=== PATIENT | male | born 1985 ===

== ENCOUNTER 2021-04-24 13:37 | Inpatient (IN) | payer OTHER ==
[2021-04-24 17:13] LABS: Basophils % (Auto) 0.3 % (0.0-1.8); Eosinophils # (Auto) 0.2 K/mm3 (0.0-0.4); Eosinophils % (Auto) 3.1 % (0.0-4.3); Lymphocytes # (Auto) 1.7 K/mm3 (1.2-5.4); Mean Corpuscular HGB Conc 36 % (32-34); Mean Corpuscular Volume 87 fl (84-94); Monocytes # (Auto) 0.5 K/mm3 (0.0-0.8); Monocytes % (Auto) 9.9 % (0.0-7.3); Platelet Count 167 K/mm3 (140-440); Red Blood Count 5.39 M/mm3 (3.65-5.03); Red Cell Distribution Width 13.3 % (13.2-15.2)
[2021-04-24 17:15] LABS: Alanine Aminotransferase 235 units/L (7-56); Albumin 4.6 g/dL (3.9-5); BUN/Creatinine Ratio 20; Blood Urea Nitrogen 16 mg/dL (9-20); Calcium 9.9 mg/dL (8.4-10.2); Hemolysis Index 156
[2021-04-24] MEDS ORDERED: SODIUM CHLORIDE 0.9% 1000 ML 1,000 ML IV ONE (17:30)
--- NOTE | 2021-04-24 17:34 | Event Note ---
ED Screening Note Date of service: 04/24/21 Time: 17:30 ED Screening Note: 36-year-old male patient with history of diabetes presents to the emergency department with complaints of blurred vision, dizziness, and dry mouth for approximately 1 week. His symptoms prompted him to check his blood sugar, which he found to be elevated. Patient has not taken his diabetes medications in over 1 year. States he has been noncompliant with his glycemic control regimen due to current travel restrictions; his medications are reportedly in [place]. General: Awake, appropriately interactive, no acute distress. Neck: Supple. Full range of motion intact. Cardiovascular: Normal peripheral perfusion. Pulmonary: No respiratory distress. Patient is speaking normally without use of accessory muscles. Skin: No apparent rashes or lesions. Neurological: No facial asymmetry. Speech is clear. Follows commands. Patient is alert and oriented. Musculoskeletal: Moves all four extremities spontaneously with normal range of motion. Psych: Cooperative. Appropriate mood and affect. Labs available at the time of medical screening examination significant for hyperglycemia, anion gap metabolic acidosis, transaminitis. Urinalysis pending; high clinical suspicion for DKA. I have greeted and performed a focused rapid initial assessment of this patient. A comprehensive ED assessment and evaluation of the patient, analysis of all test results, and completion of the medical decision-making process will be conducted by additional ED providers. This initial assessment/diagnostic orders/clinical plan/treatment(s) is/are subject to change based on patients health status, clinical progression and re-assessment. Further treatment and workup at subsequent clinical provider's discretion. Patient/guardian urged not to elope from the ED as their condition may be serious if not clinically assessed and managed.
[2021-04-24 17:55] LABS: Hemoglobin 16.7 gm/dl (11.8-15.2)
[2021-04-24 17:56] LABS: Hematocrit 46.8 % (35.5-45.6)
[2021-04-24 18:47] LABS: Bilirubin,Urine NEG (Negative); Blood,Urine NEG (Negative); Color,Urine Straw (Yellow); Protein,Urine <15 mg/dL mg/dL (Negative); RBC,Urine < 1.0 /HPF (0.0-6.0); Urobilinogen,Urine < 2.0 mg/dL (<2.0)
[2021-04-24 18:55] LABS: INR 0.89 (0.87-1.13)
[2021-04-24 18:57] LABS: Partial Thromboplastin Time 30.6 Sec. (24.2-36.6)
[2021-04-25] MEDS ORDERED: DEXTROSE 50% IN WATER (25GM) 50 ML SYRINGE IV PRN ×2 (00:11→11:26)
[2021-04-25] MEDS ORDERED: SODIUM CHLORIDE 0.9% 1000 ML 1,000 ML IV ONE (00:11)
--- NOTE | 2021-04-25 00:19 | Emergency Department Report ---
ED General Adult HPI - General Chief complaint: Hyperglycemia Stated complaint: ELEVATED BLOOD GLUCOSE PUI?: No Time Seen by Provider: 04/25/21 00:05 Source: patient Mode of arrival: Ambulatory Limitations: No Limitations - History of Present Illness Initial comments: Patient is a 36-year-old male that presents emergency room with complaints of dizziness, lightheadedness, elevated blood sugar. Patient states he was seen at a outpatient clinic today and was found to have hyperglycemia, ketones in his urine. Patient states the clinic sent him here to be evaluated. Patient states he has diabetes and is not taking any medications for almost 1 year. Patient states that his urination, and thirst, dry mouth, dizziness. Patient states his dizziness is better with rest and worse with movement. Patient states that he is urinating a lot more frequent. Patient denies recent travel. Patient denies recent international travel. Patient denies exposure to the novel coronavirus. Patient denies sick contacts. Patient denies fever and chills. Patient denies cough. Patient denies diarrhea. Patient denies coming in contact with anybody with symptoms of the novel coronavirus. -: Sudden Consistency: constant Improves with: rest Worsens with: movement Associated Symptoms: malaise. denies: confusion, chest pain, cough, diaphoresis, fever/chills, headaches, loss of appetite, nausea/vomiting, rash, seizure, shortness of breath, syncope, weakness Treatments Prior to Arrival: none - Related Data Allergies Allergy/AdvReac Type Severity Reaction Status Date / Time No Known Allergies Allergy Unverified 04/24/21 15:18 ED Review of Systems ROS: Stated complaint: ELEVATED BLOOD GLUCOSE Other details as noted in HPI Constitutional: malaise. denies: chills, fever Eyes: denies: eye pain, eye discharge, vision change ENT: denies: ear pain, throat pain Respiratory: denies: cough, shortness of breath, wheezing Cardiovascular: denies: chest pain, palpitations Endocrine: see HPI, increased thirst, increased urine Gastrointestinal: denies: abdominal pain, nausea, diarrhea Genitourinary: denies: urgency, dysuria Musculoskeletal: denies: back pain, joint swelling, arthralgia Skin: denies: rash, lesions Neurological: as per HPI. denies: headache, weakness, paresthesias Psychiatric: denies: anxiety, depression Hematological/Lymphatic: denies: easy bleeding, easy bruising ED Past Medical Hx - Past Medical History Previous Medical History?: Yes Hx Diabetes: Yes - Surgical History Past Surgical History?: No - Family History Family history: no significant - Social History Smoking Status: Never Smoker Substance Use Type: None ED Physical Exam - General Limitations: No Limitations General appearance: alert, in no apparent distress - Head Head exam: Present: atraumatic, normocephalic - Eye Eye exam: Present: normal appearance - ENT ENT exam: Present: mucous membranes moist - Neck Neck exam: Present: normal inspection - Respiratory Respiratory exam: Present: normal lung sounds bilaterally. Absent: respiratory distress - Cardiovascular Cardiovascular Exam: Present: regular rate, normal rhythm. Absent: systolic murmur, diastolic murmur, rubs, gallop - GI/Abdominal GI/Abdominal exam: Present: soft, normal bowel sounds. Absent: distended, tenderness, guarding, rebound - Rectal Rectal exam: Present: deferred - Extremities Exam Extremities exam: Present: normal inspection - Back Exam Back exam: Present: normal inspection - Neurological Exam Neurological exam: Present: alert, oriented X3 - Psychiatric Psychiatric exam: Present: normal affect, normal mood - Skin Skin exam: Present: warm, dry, intact, normal color. Absent: rash ED Course Vital Signs 04/24/21 04/24/21 04/25/21 15:20 15:23 00:56 Temperature 98.3 F 98.3 F Pulse Rate 88 96 H Respiratory 20 16 17 Rate Blood Pressure 147/96 Blood Pressure 147/89 [Right] O2 Sat by Pulse 98 96 98 Oximetry - Reevaluation(s) Reevaluation #1: Patient is in DKA. Patient will be placed on a DKA protocol. 04/25/21 00:19 Reevaluation #2: I discussed all results with patient. I discussed plan of care with patient. Patient agrees with plan of care and admission. Patient to be admitted to the hospitalist service. 04/25/21 00:56 - Consultations Consultation #1: Hospitalist consulted for admission. Hospitalist to admit patient. 04/25/21 00:56 ED Medical Decision Making - Lab Data Result diagrams: 04/24/21 16:26 04/25/21 04:20 - Medical Decision Making Patient is a 36-year-old male who presents emergency room with complaints of hyperglycemia. Patient went to a local primary care today and was found to have ketonuria and hyperglycemia and dizziness. Patient is sent here for evaluation. Patient found to have a DKA. Patient had a recheck of his labs and worsening bicarb. Patient was placed on a DKA protocol to include insulin drip and fluids. Patient admitted to the hospital service and into the ICU. Critical care time documented due to the multiple reassessments, prolonged time at the bedside, interpretation of diagnostics and labs. - Differential Diagnosis DKA, noncompliance, hyperglycemia, dehydration Critical Care Time: Yes Critical care time in (mins) excluding proc time.: 35 Critical care attestation.: If time is entered above; I have spent that time in minutes in the direct care of this critically ill patient, excluding procedure time. Critical Care Time: 35 minutes ED Disposition Clinical Impression: Noncompliance, Polyuria, Dizziness DKA (diabetic ketoacidoses) Qualifiers: Diabetes mellitus type: type 2 Diabetes mellitus complication detail: without coma Qualified Code(s): E11.10 - Type 2 diabetes mellitus with ketoacidosis without coma Disposition: 09 OP ADMIT IP TO THIS HOSP Is pt being admited?: Yes Does the pt Need Aspirin: No Condition: Critical Time of Disposition: 00:58
[2021-04-25 00:47] LABS: BUN/Creatinine Ratio 16; Blood Urea Nitrogen 14 mg/dL (9-20); Calcium 9.5 mg/dL (8.4-10.2); Hemolysis Index 18
[2021-04-25] MEDS: D5W/0.45% NACL/KCL 20 MEQ 20 MEQ/1,000 ML BAG IV SCH ×2 (00:51→09:49)
[2021-04-25] MEDS ORDERED: INSULIN REGULAR, HUMAN 100 UNITS in SODIUM CHLORIDE 0.9% 99 ML IV SCH ×2 (01:00→03:00)
[2021-04-25] MEDS ORDERED: ALBUTEROL 2.5 MG/3 ML NEBU IH PRN (02:30)
[2021-04-25] MEDS ORDERED: ONDANSETRON 4 MG/2 ML INJ IV PRN (02:30)
[2021-04-25] MEDS ORDERED: ACETAMINOPHEN 325 MG TAB PO PRN (02:30)
--- NOTE | 2021-04-25 02:37 | History and Physical Report ---
History of Present Illness Date of examination: 04/25/21 Date of admission: 04/25/21 00:58 Chief complaint: Hyperglycemia History of present illness: 36-year-old male with history of diabetes was brought to the emergency room because of blurred vision, dizziness and dry mouth for approximately 1 week. patient was seen at a outpatient clinic today and was found to have hyperglycemia, ketones in his urine. Patient states the clinic sent him here to be evaluated. Patient states he has diabetes and is not taking any medications for almost 1 year. Patient states that his urination, and thirst, dry mouth, dizziness. Patient states his dizziness is better with rest and worse with movement. Patient states that he is urinating a lot more frequent. In the emergency room patient is found to have blood glucose of 404 anion gap is 26 and bicarb of 19 Past History Past Medical History: diabetes Medications and Allergies Allergies Allergy/AdvReac Type Severity Reaction Status Date / Time No Known Allergies Allergy Unverified 04/24/21 15:18 Active Meds: Active Medications Dextrose (Dextrose 50% In Water (25gm) 50 Ml Syringe) 50 ml IV Q30MIN PRN; Protocol PRN Reason: Hypoglycemia Insulin Human Regular 100 (units/ Sodium Chloride) 100 mls @ 1 mls/hr IV TITR VIDHI; Protocol Last Admin: 04/25/21 00:50 Dose: 5 units/hr, 5 mls/hr Documented by: Potassium Chloride/Dextrose/Sod Cl (D5w/0.45% Nacl/Kcl 20 Meq) 20 meq in 1,000 mls @ 125 mls/hr IV DIRECT VIDHI Last Admin: 04/25/21 00:51 Dose: 125 mls/hr Documented by: Review of Systems Constitutional: fatigue, other (Dizziness dry mouth) Genitourinary Male: urinary frequency (Blurred vision dry mouth dizziness) Exam - Constitutional Vitals: Temp Pulse Resp BP Pulse Ox 98.3 F 96 H 17 147/89 98 04/24/21 15:23 04/24/21 15:23 04/25/21 00:56 04/24/21 15:23 04/25/21 00:56 General appearance: Present: no acute distress, well-nourished - EENT Eyes: Present: PERRL ENT: hearing intact, clear oral mucosa - Neck Neck: Present: supple, normal ROM - Respiratory Respiratory effort: normal Respiratory: bilateral: CTA - Cardiovascular Heart Sounds: Present: S1 & S2. Absent: rub, click - Extremities Extremities: pulses symmetrical, No edema Peripheral Pulses: within normal limits - Abdominal General gastrointestinal: Present: soft, non-tender, non-distended, normal bowel sounds Male genitourinary: Present: normal - Integumentary Integumentary: Present: clear, warm, dry - Musculoskeletal Musculoskeletal: gait normal, strength equal bilaterally - Psychiatric Psychiatric: appropriate mood/affect, intact judgment & insight - Neurologic Neurologic: CNII-XII intact, moves all extremities Results - Labs CBC & Chem 7: 04/24/21 16:26 04/25/21 00:22 Labs: Laboratory Last Values WBC 5.4 K/mm3 (4.5-11.0) 04/24/21 16: RBC 5.39 M/mm3 (3.65-5.03) H 04/24/21 16:26 Hgb 16.7 gm/dl (11.8-15.2) H 04/24/21 16:26 Hct 46.8 % (35.5-45.6) H 04/24/21 16:26 MCV 87 fl (84-94) 04/24/21 16:26 MCH 31 pg (28-32) 04/24/21 16:26 MCHC 36 % (32-34) H 04/24/21 16: RDW 13.3 % (13.2-15.2) 04/24/21 16: Plt Count 167 K/mm3 (140-440) 04/24/21 16: Lymph % (Auto) 31.0 % (13.4-35.0) 04/24/21 16:26 [place] % (Auto) 9.9 % (0.0-7.3) H 04/24/21 16: Eos % (Auto) 3.1 % (0.0-4.3) 04/24/21 16: Baso % (Auto) 0.3 % (0.0-1.8) 04/24/21 16: Lymph # (Auto) 1.7 K/mm3 (1.2-5.4) 04/24/21 16: [place] # (Auto) 0.5 K/mm3 (0.0-0.8) 04/24/21 16:26 Eos # (Auto) 0.2 K/mm3 (0.0-0.4) 04/24/21 16:26 Baso # (Auto) 0.0 K/mm3 (0.0-0.1) 04/24/21 16:26 Seg Neutrophils % 55.7 % (40.0-70.0) 04/24/21 16:26 Seg Neutrophils # 3.0 K/mm3 (1.8-7.7) 04/24/21 16:26 PT 12.6 Sec. (12.2-14.9) 04/24/21 17:50 INR 0.89 (0.87-1.13) 04/24/21 17:50 APTT 30.6 Sec. (24.2-36.6) 04/24/21 17:50 VBG pH 7.314 (7.320-7.420) L 04/24/21 16:26 Sodium 132 mmol/L (137-145) L 04/25/21 00:22 Potassium 4.2 mmol/L (3.6-5.0) 04/25/21 00:22 Chloride 92.4 mmol/L (98-107) L 04/25/21 00:22 Carbon Dioxide 18 mmol/L (22-30) L 04/25/21 00:22 Anion Gap 26 mmol/L 04/25/21 00:22 BUN 14 mg/dL (9-20) 04/25/21 00:22 Creatinine 0.9 mg/dL (0.8-1.3) 04/25/21 00:22 Estimated GFR > 60 ml/min 04/25/21 00:22 BUN/Creatinine Ratio 16 % 04/25/21 00:22 Glucose 295 mg/dL (75-100) H 04/25/21 00:22 POC Glucose 408 mg/dL (70-105) H 04/24/21 15:21 Calcium 9.5 mg/dL (8.4-10.2) 04/25/21 00:22 Phosphorus 3.90 mg/dL (2.5-4.5) 04/25/21 00:22 Magnesium 1.90 mg/dL (1.7-2.3) 04/25/21 00:22 Total Bilirubin 0.60 mg/dL (0.1-1.2) 04/24/21 16:26 AST 134 units/L (5-40) H 04/24/21 16:26 ALT 235 units/L (7-56) H 04/24/21 16:26 Alkaline Phosphatase 137 units/L (35-129) H 04/24/21 16:26 Ammonia 31.0 umol/L (25-60) 04/24/21 17:50 Total Protein 8.0 g/dL (6.3-8.2) 04/24/21 16:26 Albumin 4.6 g/dL (3.9-5) 04/24/21 16:26 Albumin/Globulin Ratio 1.4 % 04/24/21 16:26 Lipase 117 units/L (13-60) H 04/24/21 17:50 Urine Color Straw (Yellow) 04/24/21 17:37 Urine Turbidity Clear (Clear) 04/24/21 17:37 Urine pH 5.0 (5.0-7.0) 04/24/21 17:37 Ur Specific [place] 1.027 (1.003-1.030) 04/24/21 17:37 Urine Protein <15 mg/dl mg/dL (Negative) 04/24/21 17:37 Urine Glucose (UA) >=500 mg/dL (Negative) 04/24/21 17:37 Urine Ketones 80 mg/dL (Negative) 04/24/21 17:37 Urine Blood Neg (Negative) 04/24/21 17:37 Urine Nitrite Neg (Negative) 04/24/21 17:37 Urine Bilirubin Neg (Negative) 04/24/21 17:37 Urine Urobilinogen < 2.0 mg/dL (<2.0) 04/24/21 17:37 Ur Leukocyte Esterase Neg (Negative) 04/24/21 17:37 Urine WBC (Auto) 1.0 /HPF (0.0-6.0) 04/24/21 17:37 Urine RBC (Auto) < 1.0 /HPF (0.0-6.0) 04/24/21 17:37 Assessment and Plan VTE prophylaxis?: Chemical Plan of care discussed with patient/family: Yes - Patient Problems (1) DKA (diabetic ketoacidoses) Current Visit: Yes Status: Acute Qualifiers: Diabetes mellitus type: type 2 Diabetes mellitus complication detail: without coma Qualified Code(s): E11.10 - Type 2 diabetes mellitus with ketoacidosis without coma Plan to address problem: Admit the patient to the ICU overnight. Put the patient on DKA pathway. IV fluid normal saline at the rate of 150 cc/h. Insulin drip as per protocol. We do the serial BMP. We also consult diabetic education (2) Diabetes type 1, uncontrolled Current Visit: Yes Status: Acute Plan to address problem: Patient advised to compliant with the medication. Insulin drip as per protocol. We do the serial BMP. We also consult diabetic education (3) Dizziness Current Visit: Yes Status: Acute Plan to address problem: Normal saline at the rate of 150 cc/h. We will monitor the patient closely. (4) Polyuria Current Visit: Yes Status: Acute Plan to address problem: Patient counseled regarding compliant with the diabetic medication. We also consult diabetic education (5) DVT prophylaxis Current Visit: Yes Status: Acute Plan to address problem: Heparin 5000 units subcu every 8 hours for DVT prophylaxis. Pepcid 20 mg p.o. twice daily for GI prophylaxis. Patient is a full code
[2021-04-25 03:26] LABS: Blood Urea Nitrogen 12 mg/dL (9-20); Calcium 7.9 mg/dL (8.4-10.2); Hemolysis Index 11
[2021-04-25 03:33] LABS: BUN/Creatinine Ratio 17
[2021-04-25 04:56] LABS: BUN/Creatinine Ratio 15; Blood Urea Nitrogen 12 mg/dL (9-20); Calcium 9.3 mg/dL (8.4-10.2); Hemolysis Index 17
[2021-04-25 07:40] LABS: BUN/Creatinine Ratio 12; Blood Urea Nitrogen 11 mg/dL (9-20); Hemolysis Index 7
[2021-04-25 09:23] LABS: BUN/Creatinine Ratio 14; Blood Urea Nitrogen 11 mg/dL (9-20); Calcium 9.1 mg/dL (8.4-10.2); Hemolysis Index 6
[2021-04-25] MEDS: FAMOTIDINE 20 MG TAB PO SCH ×2 (10:06→23:29)
[2021-04-25] MEDS: INSULIN LISPRO 100 UNIT/ML SUB-Q SCH ×3 (11:46→23:29)
[2021-04-25] MEDS: INSULIN NPH/REGULAR 70/30 INJ SUB-Q SCH (12:47)
[2021-04-25] MEDS ORDERED: hydrALAZINE 20 MG/1 ML INJ IV PRN (13:49)
--- NOTE | 2021-04-25 13:52 | Progress Note ---
History Interval history: This is a 36-year-old male with diabetes, recent COVID-19 vaccination and medical noncompliance who presented to emergency department on 04/25 with complaints of blurred vision, polyuria, polydipsia dizziness, dry mouth for approximately 1 week prior to presentation and stated that he was seen at outpatient clinic and was found to be hyperglycemic with ketones in his urine and they recommended ED visit.. Work-up in the emergency department revealed hyperglycemia with a glucose of 404, high anion gap metabolic acidosis, polycythemia, hyponatremia and hypochloremia. Patient was admitted to the hospital service in DKA to the ICU on insulin drip. 04/25: Patient was able to be transitioned off of insulin drip to SSI and started on a CC diet. Patient will be transferred to the floor. COVID-19 PCR pending. Will obtain a.m. labs. Hemoglobin A1c is 10.7. Patient remains on room air. Diabetic ketoacidosis Hyperglycemia Polycythemia Hyponatremia (resolved) Hypokalemia (resolved) Hypochloremia (resolved) Metabolic acidosis (resolved) Transaminitis Diabetes mellitus Medical noncompliance -Nutrition consulted -Continue droplet/isolation precautions -S/p insulin drip -Transition to SSI and long-acting insulin -CC diet -04/25: Hemoglobin A1c 10.7 -Blood pressure monitoring per protocol -Hydralazine as needed for SBP greater than 160 -Trend BMP, CBC, LFTs GI/DVT prophylaxis: Heparin subcu, SCDs to bilateral shins while in bed, PPI Disposition: Transfer to floor Hospitalist Physical - Constitutional Vitals: Temp Pulse Resp BP Pulse Ox 98.7 F 76 10 L 130/74 96 04/25/21 10:30 04/25/21 13:40 04/25/21 13:40 04/25/21 13:40 04/25/21 13:40 General appearance: Present: no acute distress, well-nourished Results - Labs CBC & Chem 7: 04/24/21 16:26 04/25/21 08:47 Labs: Laboratory Last Values WBC 5.4 K/mm3 (4.5-11.0) 04/24/21 16:26 RBC 5.39 M/mm3 (3.65-5.03) H 04/24/21 16:26 Hgb 16.7 gm/dl (11.8-15.2) H 04/24/21 16: Hct 46.8 % (35.5-45.6) H 04/24/21 16: MCV 87 fl (84-94) 04/24/21 16: MCH 31 pg (28-32) 04/24/21 16: MCHC 36 % (32-34) H 04/24/21 16:26 RDW 13.3 % (13.2-15.2) 04/24/21 16:26 Plt Count 167 K/mm3 (140-440) 04/24/21 16:26 Lymph % (Auto) 31.0 % (13.4-35.0) 04/24/21 16: [place] % (Auto) 9.9 % (0.0-7.3) H 04/24/21 16:26 Eos % (Auto) 3.1 % (0.0-4.3) 04/24/21 16: Baso % (Auto) 0.3 % (0.0-1.8) 04/24/21 16: Lymph # (Auto) 1.7 K/mm3 (1.2-5.4) 04/24/21 16:26 [place] # (Auto) 0.5 K/mm3 (0.0-0.8) 04/24/21 16:26 Eos # (Auto) 0.2 K/mm3 (0.0-0.4) 04/24/21 16: Baso # (Auto) 0.0 K/mm3 (0.0-0.1) 04/24/21 16: Seg Neutrophils % 55.7 % (40.0-70.0) 04/24/21 16: Seg Neutrophils # 3.0 K/mm3 (1.8-7.7) 04/24/21 16: PT 12.6 Sec. (12.2-14.9) 04/24/21 17:50 INR 0.89 (0.87-1.13) 04/24/21 17:50 APTT 30.6 Sec. (24.2-36.6) 04/24/21 17:50 VBG pH 7.314 (7.320-7.420) L 04/24/21 16:26 Sodium 139 mmol/L (137-145) 04/25/21 08:47 Potassium 3.6 mmol/L (3.6-5.0) 04/25/21 08:47 Chloride 103.2 mmol/L (98-107) 04/25/21 08:47 Carbon Dioxide 22 mmol/L (22-30) 04/25/21 08:47 Anion Gap 17 mmol/L 04/25/21 08:47 BUN 11 mg/dL (9-20) 04/25/21 08:47 Creatinine 0.8 mg/dL (0.8-1.3) 04/25/21 08:47 Estimated GFR > 60 ml/min 04/25/21 08:47 BUN/Creatinine Ratio 14 % 04/25/21 08:47 Glucose 102 mg/dL (75-100) H 04/25/21 08:47 POC Glucose 143 mg/dL (70-105) H 04/25/21 11:17 Hemoglobin A1c 10.7 % (4-6) H 04/25/21 08:47 Calcium 9.1 mg/dL (8.4-10.2) 04/25/21 08:47 Phosphorus 2.90 mg/dL (2.5-4.5) D 04/25/21 04:20 Magnesium 2.00 mg/dL (1.7-2.3) 04/25/21 04:20 Total Bilirubin 0.60 mg/dL (0.1-1.2) 04/24/21 16:26 AST 134 units/L (5-40) H 04/24/21 16:26 ALT 235 units/L (7-56) H 04/24/21 16:26 Alkaline Phosphatase 137 units/L (35-129) H 04/24/21 16:26 Ammonia 31.0 umol/L (25-60) 04/24/21 17:50 Total Protein 8.0 g/dL (6.3-8.2) 04/24/21 16:26 Albumin 4.6 g/dL (3.9-5) 04/24/21 16:26 Albumin/Globulin Ratio 1.4 % 04/24/21 16:26 Lipase 117 units/L (13-60) H 04/24/21 17:50 Urine Color Straw (Yellow) 04/24/21 17:37 Urine Turbidity Clear (Clear) 04/24/21 17:37 Urine pH 5.0 (5.0-7.0) 04/24/21 17:37 Ur Specific [place] 1.027 (1.003-1.030) 04/24/21 17:37 Urine Protein <15 mg/dl mg/dL (Negative) 04/24/21 17:37 Urine Glucose (UA) >=500 mg/dL (Negative) 04/24/21 17:37 Urine Ketones 80 mg/dL (Negative) 04/24/21 17:37 Urine Blood Neg (Negative) 04/24/21 17:37 Urine Nitrite Neg (Negative) 04/24/21 17:37 Urine Bilirubin Neg (Negative) 04/24/21 17:37 Urine Urobilinogen < 2.0 mg/dL (<2.0) 04/24/21 17:37 Ur Leukocyte Esterase Neg (Negative) 04/24/21 17:37 Urine WBC (Auto) 1.0 /HPF (0.0-6.0) 04/24/21 17:37 Urine RBC (Auto) < 1.0 /HPF (0.0-6.0) 04/24/21 17:37 [place]/IV: Voiding Method Toilet Active Medications - Current Medications Current Medications: Generic Name Dose Route Start Last Admin Trade Name Freq PRN Reason Stop Dose Admin Acetaminophen 650 mg 04/25/21 02:30 Acetaminophen 325 Mg Tab PO Q4H PRN Pain MILD(1-3)/Fever >100.5/BLUE Albuterol 2.5 mg 04/25/21 02:30 Albuterol 2.5 Mg/3 Ml Nebu IH Q4HRT PRN Shortness Of Breath Dextrose 50 ml 04/25/21 11:26 Dextrose 50% In Water (25gm) 50 Ml Syringe IV Q30MIN PRN Hypoglycemia Protocol Famotidine 20 mg 04/25/21 10:00 04/25/21 10:06 Famotidine 20 Mg Tab PO 20 mg BID VIDHI Administration Insulin Human Isoph/Insulin Regular 20 unit 04/25/21 12:00 04/25/21 12:47 Insulin Nph/Regular 70/30 Inj SUB-Q 20 unit QDDIAB VIDHI Administration Insulin Human Isoph/Insulin Regular 10 unit 04/25/21 17:00 Insulin Nph/Regular 70/30 Inj SUB-Q QPMDIAB VIDHI Insulin Human Lispro 0 unit 04/25/21 11:30 04/25/21 11:46 Insulin Lispro 100 Unit/Ml SUB-Q Not Given ACHS VIDHI Protocol Ondansetron HCl 4 mg 04/25/21 02:30 Ondansetron 4 Mg/2 Ml Inj IV Q8H PRN Nausea And Vomiting Sodium Chloride 10 ml 04/25/21 10:00 04/25/21 10:06 Sodium Chloride 0.9% 10 Ml Flush Syringe IV Not Given BID VIDHI Sodium Chloride 10 ml 04/25/21 02:30 Sodium Chloride 0.9% 10 Ml Flush Syringe IV PRN PRN LINE FLUSH Nutrition/Malnutrition Assess - Dietary Evaluation Nutrition/Malnutrition Findings: Nutrition Notes Start: 04/25/21 09:30 Freq: Status: Active Protocol: Document 04/25/21 09:30 CHARLES (Rec: 04/25/21 09:31 CHARLES [id number]) Nutrition Notes Need for Assessment generated from: MD Order,Education Initial or Follow up Brief Note Current Diagnosis Diabetes Other Pertinent Diagnosis DKA Current Diet NPO Labs/Tests BG 408 on adm Subjective/Other Information MD order for diet education. Pt accepted DM diet education and all questions answered. #1 Nutrition Diagnosis Food and nutrition-related knowledge deficit Etiology pt had no prior DM diet education As Evidenced by Signs and Symptoms pt had question about serving sizes Nutrition Intervention Teaching Recipient Patient Learning Readiness Good Teaching Methods Discussion,Handout Response to Teaching Verbalize understanding Education Handouts Provided [place]ian CHO Counting for DM [place]ian Nutrition Label Reading Tips Barriers to Learning Language RD phone number provided Yes Patient aware of follow up options Yes Revisit per MD consult or patient Sign Off request:
[2021-04-25 14:07] LABS: BUN/Creatinine Ratio 13; Blood Urea Nitrogen 10 mg/dL (9-20); Calcium 8.9 mg/dL (8.4-10.2); Hemolysis Index 19
[2021-04-25 16:59] LABS: BUN/Creatinine Ratio 15; Blood Urea Nitrogen 12 mg/dL (9-20); Calcium 9.1 mg/dL (8.4-10.2); Hemolysis Index 15
[2021-04-25] MEDS ORDERED: LACTATED RINGERS 1,000 ML IV ONE (17:00)
[2021-04-25] MEDS ORDERED: INSULIN NPH/REGULAR 70/30 INJ SUB-Q SCH (17:00)
[2021-04-25 19:17] LABS: Blood Urea Nitrogen 13 mg/dL (9-20); Calcium 9.1 mg/dL (8.4-10.2); Hemolysis Index 16
[2021-04-25 19:20] LABS: BUN/Creatinine Ratio 19
[2021-04-26 00:51] LABS: BUN/Creatinine Ratio 14; Blood Urea Nitrogen 11 mg/dL (9-20); Calcium 9.1 mg/dL (8.4-10.2); Hemolysis Index 6
--- NOTE | 2021-04-26 07:17 | Discharge Summary ---
Providers - Providers Date of Admission: 04/25/21 00:58 Date of discharge: 04/26/21 Attending physician: ASHUTOSH PEREZ MD 04/25/21 02:30 Consult to Dietitian/Nutrition [CONS] Routine Physician Instructions: Reason For Exam: DKA Reason for Consult: Nutrition Recommendations Reason for Consult: Diet education Primary care physician: [employer] Hospitalization Reason for admission: Diabetic ketoacidosis Condition: Good Hospital course: This is a 36-year-old male with diabetes, recent COVID-19 vaccination and medical noncompliance who presented to emergency department on 04/25 with complaints of blurred vision, polyuria, polydipsia dizziness, dry mouth for approximately 1 week prior to presentation and stated that he was seen at outpatient clinic and was found to be hyperglycemic with ketones in his urine and they recommended ED visit.. Work-up in the emergency department revealed hyperglycemia with a glucose of 404, high anion gap metabolic acidosis, polycythemia, hyponatremia and hypochloremia. Patient was admitted to the hospital service in DKA to the ICU on insulin drip. 04/25: Patient was able to be transitioned off of insulin drip to SSI and started on a CC diet. Patient will be transferred to the floor. COVID-19 PCR pending. Will obtain a.m. labs. Hemoglobin A1c is 10.7. Patient remains on room air. 04/26: Patient seen and examined, blood sugar not controlled, patient eating without any nausea or vomiting. Patient did have transaminases, patient does not drink alcohol although he does have a history of alcohol use. Explained to patient is elevated transaminases, patient understood, patient will follow-up at primary care clinic. Patient was given prescription for insulin. Patient stable for discharge. Disposition: TO HOME OR SELFCARE Final Discharge Diagnosis (Prints w/discharge instructions): Diabetic ketoacidosis. Hyperglycemia. Polycythemia. Hyponatremia. Hypokalemia. Hypochloremia. Metabolic acidosis. Transaminitis. Diabetes mellitus. Medical noncompliance Time spent for discharge: 35 min Core Measure Documentation - Palliative Care Palliative Care/ Comfort Measures: Not Applicable - Core Measures Any of the following diagnoses?: none Exam - Physical Exam Narrative exam: General appearance: no acute distress, well-nourished EENT: PERRL, EOM intact, hearing intact, clear oral mucosa Neck: Present: supple, normal ROM Respiratory: bilateral CTA, negative: rales, rhonchi, wheezing Cardiovascular: Regular rate/rhythm, Normal S1 & S2. No gallop, rub Extremities: no ischemia, No edema, normal temperature, normal color, Full ROM Abdominal: soft, no tenderness, non-distended, normal bowel sounds Integumentary: Present: clear, warm, dry no wounds, no erythema noted Psychiatric: appropriate mood/affect, intact judgment & insight Neurologic: CNII-XII intact, moves all extremities, no sensory or motor abnormalities - Constitutional Vitals: Temp Pulse Resp BP Pulse Ox 97.8 F 59 L 18 123/75 98 04/26/21 05:09 04/26/21 05:09 04/26/21 05:09 04/26/21 05:04/26/21 05:09 Plan Activity: no restrictions Diet: diabetic Follow up with: PRIMARY CARE, [Primary Care Provider] - 7 Days Prescriptions: Lancets [Lancets Ultra Thin] 1 each MC BID #100 each Insulin NPH/Regular [NovoLIN 70/30] 20 unit SQ QDDIAB #15 ml Insulin NPH/Regular [NovoLIN 70/30] 10 unit SQ QPMDIAB #15 ml Syringe & Needle,Insulin,1 ml [Ultra Comfort] 1 each MC BID #100 disp.syrin Other Discharge Orders: Glucometer (Amb) Location: None Selected Test Strips for Blood Sugar Monitoring Location: None Selected
[2021-04-26 07:26] LABS: Basophils % (Auto) 0.8 % (0.0-1.8); Eosinophils # (Auto) 0.3 K/mm3 (0.0-0.4); Eosinophils % (Auto) 5.4 % (0.0-4.3); Hematocrit 41.3 % (35.5-45.6); Hemoglobin 14.7 gm/dl (11.8-15.2); Lymphocytes % (Auto) 38.3 % (13.4-35.0); Mean Corpuscular HGB Conc 36 % (32-34); Mean Corpuscular Volume 87 fl (84-94); Monocytes # (Auto) 0.6 K/mm3 (0.0-0.8); Monocytes % (Auto) 11.4 % (0.0-7.3); Platelet Count 151 K/mm3 (140-440); Red Blood Count 4.75 M/mm3 (3.65-5.03); Red Cell Distribution Width 13.4 % (13.2-15.2)
[2021-04-26 07:42] LABS: BUN/Creatinine Ratio 13; Blood Urea Nitrogen 10 mg/dL (9-20); Calcium 9.5 mg/dL (8.4-10.2); Hemolysis Index 7
[2021-04-26 07:45] LABS: Alanine Aminotransferase 214 units/L (7-56); BUN/Creatinine Ratio 13; Blood Urea Nitrogen 10 mg/dL (9-20); Calcium 9.2 mg/dL (8.4-10.2); Hemolysis Index 7
[2021-04-26] MEDS: INSULIN NPH/REGULAR 70/30 INJ SUB-Q SCH (09:30)
[2021-04-26] MEDS: FAMOTIDINE 20 MG TAB PO SCH (09:31)
[2021-04-26] MEDS: INSULIN LISPRO 100 UNIT/ML SUB-Q SCH ×2 (09:31→13:36)
[2021-04-26 13:09] VITALS: BP 131/84
== END 2021-04-26 14:30 | disposition home or self-care (01) | DRG 638 ==
LOC: ED 13:37 → CC1 04-25 00:58 → 3A 04-25 17:09
PROVIDERS: ADMIT Hospitalist; ATTEND Family Medicine
DX: E10.10 Type 1 diabetes mellitus with ketoacidosis without coma (principal); E87.1 Hypo-osmolality and hyponatremia; D75.1 Secondary polycythemia; E87.6 Hypokalemia; E87.8 Other disorders of electrolyte and fluid balance, not elsewhere classified; R74.01 Elevation of levels of liver transaminase levels; Z91.14 Patient's other noncompliance with medication regimen; Z79.4 Long term (current) use of insulin; Z20.822 Contact with and (suspected) exposure to COVID-19
CPT/HCPCS: 36415; 80048; 80053; 81001; 82140; 82805; 82962; 83036; 83690; 83735; 84100; 85025; 85610; 85730; G0378; J1815; J7030; J7120; U0003